=== PATIENT | female | born 1950 | race Asian ===

== ENCOUNTER 2017-09-15 06:02 | Day surgery (SDC) | payer MEDICARE, OTHER ==
[2017-09-15] MEDS ORDERED: PROPOFOL 40 ML (08:20)
== END 2017-09-15 10:45 | disposition home or self-care (01) ==
LOC: GIL 06:02
DX: Z12.11 Encounter for screening for malignant neoplasm of colon (principal); K64.8 Other hemorrhoids; I10 Essential (primary) hypertension; E11.9 Type 2 diabetes mellitus without complications
CPT/HCPCS: 45380; 82962; 88305